=== PATIENT | female | born 1945 | race Caucasian/White ===

== ENCOUNTER 2017-10-13 19:53 | Observation (INO) | payer MEDICARE, BC ==
[2017-10-13 20:19] LABS: CHLORIDE,CL 107 mEq/L (98-106); SODIUM,NA 142 mEq/L (136-145)
[2017-10-13] MEDS ORDERED: Morphine 2 MG/ML Syringe ONE (20:20)
[2017-10-13] MEDS ORDERED: Morphine 4 MG/ML Syringe IVPUSH ONE (20:23)
[2017-10-13] MEDS ORDERED: Ondansetron 4 MG/2 ML SDV IVPUSH PRN (20:24)
[2017-10-13] MEDS ORDERED: Sodium Chloride 0.9% 1,000 ML IV ONE (20:35)
--- NOTE | 2017-10-13 20:44 | EDM.PDOC ---
ED HPI GENERAL MEDICAL PROBLEM - General Chief Complaint: Chest Pain Stated Complaint: chest pain Time Seen by Provider: 10/13/17 20:30 Source of Information: Reports: Patient History Limitations: Reports: No Limitations - History of Present Illness INITIAL COMMENTS - FREE TEXT/NARRATIVE: This patient is a 72 year old female that presents to the ER. Patient arrives via private vehicle, her drove her here. Patient reports that she started having left sided chest pain with shortness of breath, and nausea. Patient reports she was walking up steps when this occurred. The patient reports that she took 3 nitro. She reports her pain was at a 8/10, now after Nitro is 3/10. Patient does look uncomfortable. Patient reports that she has history in 2014 of having 2 stents placed due to blockages. She reports this was done in [facility]. She denies history of [place], smoking. She reports has HTN and Hyperlipidemia. She reports the pain does not move from its location of the left chest. She reports the pain is sharp in nature. The patient appears anxious. The patient reports she was in [place] in May this year and had chest pain there, had observation stay overnight with negative troponins and a negative stress test the next day and discharged home. Patient is alert and oriented. Onset: Today Onset Date: 10/13/17 Onset Time: 19:28 Location: Reports: Chest Severity: Moderate Improves with: Reports: Medication (Nitro) Worsens with: Reports: None Associated Symptoms: Reports: Nausea/Vomiting, Shortness of Breath. Denies: Confusion, Chest Pain, Cough, cough w sputum, Diaphoresis, Fever/Chills, Headaches, Loss of Appetite, Malaise, Rash, Seizure, Syncope, Weakness Left Chest Pain Score (Numeric/FACES): 3 - Related Data Allergies Allergy/AdvReac Type Severity Reaction Status Date / Time alendronate sodium Allergy Indigestion Verified 10/13/17 23:44 [From Fosamax] ibandronate sodium Allergy Cannot Verified 10/13/17 23:44 [From Boniva] Remember tramadol Allergy Nausea and Verified 10/13/17 23:44 Vomiting Home Meds: Home Meds Acetaminophen [Tylenol Extra Strength] 1,000 mg PO Q4H PRN 02/27/14 [History] Calcium Carbonate/Vitamin D3 [Calcium 600 + Vit D Tablet] 1 each PO BID [History] Omeprazole 20 mg PO DAILY 02/27/14 [History] Temazepam [Restoril] 30 mg PO BEDTIME PRN 02/27/14 [History] Aspirin [Adult Low Dose Aspirin EC] 81 mg PO DAILY 02/15/15 [History] Carvedilol 3.125 mg PO BID 02/15/15 [History] Isosorbide Mononitrate [Imdur] 30 mg PO DAILY 02/15/15 [History] Nitroglycerin [Nitrostat] 0.4 mg PO Q5M PRN 02/15/15 [History] Rosuvastatin Calcium [Crestor] 10 mg PO Q48H 02/15/15 [History] Ticagrelor [Brilinta] 90 mg PO BID 02/15/15 [History] Multivitamin [Multi-Vitamin Daily] 1 tab PO DAILY 01/18/16 [History] Carboxymethylcellulose Sodium [Refresh Plus 0.5%] 1 drop EYEBOTH QID PRN [History] Cetirizine HCl 1 tab PO DAILY PRN 09/12/16 [History] Polyethylene Glycol 3350 [MiraLAX] 1 dose PO DAILY PRN 09/12/16 [History] cycloSPORINE [Restasis] 1 drop EYEBOTH BID 09/12/16 [History] Benazepril [Lotensin] 2.5 mg PO DAILY 10/13/17 [History] Dimenhydrinate [Dramamine] 25 mg PO BID PRN 10/13/17 [History] Meclizine [Antivert] 25 mg PO BID PRN 10/13/17 [History] Past Medical History HEENT History: Reports: Allergic Rhinitis, Cataract Cardiovascular History: Reports: Angina, Arrhythmia, CAD, High Cholesterol, Hypertension, PTCA, Stents Other Cardiovascular History: January 2015 had PTCA Stent while in [place]. Attended 11 cardiac rehab sessions there, our insurance department says 12 sessions attended; said she had cp again, saw cardiology through [place], sent for stress test, then angiogram [facility]. 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 HX OF BRADYCARDIA. HX OF FATIGUE Gastrointestinal History: Reports: GERD, Hemorrhoids, Irritable Bowel Syndrome, Other (See Below) Other Gastrointestinal History: indigestion. RECTAL FISSURE Genitourinary History: Reports: None Other OB/BYN History: Right breast mastectomy due to cancer Musculoskeletal History: Reports: Osteoarthritis, Other (See Below) Other Musculoskeletal History: bilat knee replacement. LEFT ANKLE SPRAIN. ONYCHOMYCOSIS OF TOENAIL Neurological History: Reports: Neuropathy, Peripheral, Other (See Below) Other Neuro History: says she has had peripheral neuropathy. INSOMNIA Psychiatric History: Reports: Anxiety Endocrine/Metabolic History: Reports: Osteopenia Hematologic History: Reports: Blood Transfusion(s) Immunologic History: Reports: None Oncologic (Cancer) History: Reports: Breast Other Oncologic History: CA in 2009 Dermatologic History: Reports: Other (See Below) Other Dermatologic History: SEBORRHEIC KERATOSIS - Infectious Disease History Infectious Disease History: Reports: Measles - Past Surgical History Head Surgeries/Procedures: Reports: None HEENT Surgical History: Reports: Cataract Surgery Other HEENT Surgeries/Procedures: tympoplasty Cardiovascular Surgical History: Reports: Coronary Artery Stent, Other (See Below) Other Cardiovascular Surgeries/Procedures: said she had an episode of dizziness for which Erika Rick decreased her Coreg, and she was improved; says she had some SOB since her PTCA, but said possibly due to Brilenta. HX OF ABNORMAL NUCLEAR STRESS TEST. HX OF CARDIAC STENT PLACEMENT GI Surgical History: Reports: Cholecystectomy, Colonoscopy Musculoskeletal Surgical History: Reports: Knee Replacement, Other (See Below) Other Musculoskeletal Surgeries/Procedures:: says she has had bilat knee replacement;says she has had some intolerance to cholesterol meds last year, but has been taking the Crestor without problems;. BILAT KNEE REPLACEMENT Oncologic Surgical History: Reports: Mastectomy, Other (See Below) Other Oncologic Surgeries/Procedures: RIGHT SIDED MASTECTOMY Social & Family History - Family History Cardiac: Reports: CAD, Hypertension Neurological: Reports: CVA Endocrine/Metabolic: Reports: Diabetes, type II - Caffeine Use Caffeine Use: Reports: Coffee ED ROS GENERAL - Review of Systems Review Of Systems: See Below Constitutional: Reports: No Symptoms HEENT: Reports: No Symptoms Respiratory: Reports: Shortness of Breath. Denies: Wheezing, Pleuritic Chest Pain, Cough, Sputum, Hemoptysis Cardiovascular: Reports: Chest Pain. Denies: Edema, Lightheadedness, Palpitations, Syncope Endocrine: Reports: No Symptoms GI/Abdominal: Reports: Nausea. Denies: Abdominal Pain, Vomiting : Reports: No Symptoms Musculoskeletal: Reports: No Symptoms Skin: Reports: No Symptoms Neurological: Reports: No Symptoms Psychiatric: Reports: No Symptoms Hematologic/Lymphatic: Reports: No Symptoms Immunologic: Reports: No Symptoms ED EXAM, GENERAL - Physical Exam Exam: See Below Exam Limited By: No Limitations General Appearance: Alert, WD/WN, No Apparent Distress, Anxious Eye Exam: Bilateral Eye: Normal Inspection, PERRL Ears: Normal External Exam, Normal Canal, Hearing Grossly Normal, Normal TMs Ear Exam: Bilateral Ear: Auricle Normal, Canal Normal, TM normal Nose: Normal Inspection, Normal Mucosa, No Blood Throat/Mouth: Normal Inspection, Normal Lips, Normal Teeth, Normal Gums, Normal Oropharynx, Normal Voice, No Airway Compromise Head: Atraumatic, Normocephalic Neck: Normal Inspection, Supple, Non-Tender, Full Range of Motion Respiratory/Chest: No Respiratory Distress, Lungs Clear, Normal Breath Sounds, No Accessory Muscle Use, Chest Non-Tender Cardiovascular: Normal Peripheral Pulses, Regular Rate, Rhythm, No Edema, No Gallop, No JVD, No Murmur, No Rub Peripheral Pulses: 2+: Posterior Tibial (L), Posterior Tibial (R) GI/Abdominal: Soft, Non-Tender, No Organomegaly, No Distention Back Exam: Normal Inspection, Full Range of Motion Extremities: Normal Inspection, Normal Range of Motion, Non-Tender, No Pedal Edema, Normal Capillary Refill Neurological: Alert, Oriented Psychiatric: Anxious Skin Exam: Warm, Dry, Intact, Normal Color, No Rash Lymphatic: No Adenopathy EKG INTERPRETATION EKG Date: 10/13/17 Time: 20:01 Rhythm: NSR Rate (Beats/Min): 74 [place]: Normal P-Wave: Present QRS: Normal ST-T: Normal QT: Normal Course - Vital Signs Last Recorded V/S: Last Vital Signs Temp 97.4 F 10/14/17 07:40 Pulse 64 10/14/17 07:40 Resp 20 10/14/17 07:40 BP 135/91 H 10/14/17 07:40 Pulse Ox 98 10/14/17 07:40 - Orders/Labs/Meds Orders: Active Orders 24 hr Category Date Time Status Patient Status [ADT] Routine ADT 10/13/17 23:42 Active Ambulate [RC] .PRN Care 10/13/17 23:42 Active Cardiac Monitoring [RC] 08,1999 Care 10/13/17 23:42 Active Notify Provider Vital Signs [RC] .PRN Care 10/13/17 23:42 Active Oxygen Therapy [RC] .PRN Care 10/13/17 23:42 Active Up With Assistance [RC] .PRN Care 10/13/17 23:42 Active Vital Signs [RC] 0000,0400,0800,1200,1600,2000 Care 10/13/17 23:42 Active Resuscitation Status Routine Resus Stat 10/13/17 23:14 Ordered Labs: Laboratory Tests 10/13/17 10/13/17 10/13/17 Range/Units 20:00 20:01 20:01 WBC 7.6 (5.0-10.0) 10^3/uL RBC 4.01 (4.00-5.50) 10^6/uL Hgb 12.6 (12.0-16.0) g/dL Hct 38.4 (37.0-47.0) % MCV 95.8 H (82.0-94.0) fL MCH 31.4 (27.0-32.0) pg MCHC 32.8 L (33.0-38.0) g/dL RDW Coeff of Wesley 13.8 (11.0-15.0) % Plt Count 285 (150-400) 10^3/uL Neut % (Auto) 58.9 (35-85) % Lymph % (Auto) 26.5 (10-55) % Moca % (Auto) 9.6 (0-16) % Eos % (Auto) 4.6 (0-5) % Baso % (Auto) 0.4 (0-3) % Neut # (Auto) 4.47 (1.80-7.00) 10^3/uL Lymph # (Auto) 2.01 (1.00-4.80) 10^3/uL Moca # (Auto) 0.73 (0.00-0.80) 10^3/uL Eos # (Auto) 0.35 (0.00-0.45) 10^3/uL Baso # (Auto) 0.03 10^3/uL PT (9.7-12.3) SEC INR (0.92-1.18) APTT (23.2-32.3) SEC D-Dimer, Quantitative 0.21 (0.00-0.50) Sodium 142 (136-145) mEq/L Potassium 3.6 (3.5-5.0) mEq/L Chloride 107 H (98-106) mEq/L Carbon Dioxide 26 (21-32) mmol/L BUN 26 H (7-18) mg/dL Creatinine 1.2 H (0.6-1.0) mg/dL Est Cr Clr Drug Dosing TNP Estimated GFR (MDRD) 44 L (>=60) mL/min Glucose 114 H (75-99) mg/dL Calcium 9.0 (8.4-10.1) mg/dL Lactate Dehydrogenase 207 H (100-190) U/L Creatine Kinase 165 (21-215) U/L Troponin I < 0.017 (0.00-0.06) ng/mL 10/13/17 10/13/17 Range/Units 20:01 22:05 WBC (5.0-10.0) 10^3/uL RBC (4.00-5.50) 10^6/uL Hgb (12.0-16.0) g/dL Hct (37.0-47.0) % MCV (82.0-94.0) fL MCH (27.0-32.0) pg MCHC (33.0-38.0) g/dL RDW Coeff of Wesley (11.0-15.0) % Plt Count (150-400) 10^3/uL Neut % (Auto) (35-85) % Lymph % (Auto) (10-55) % Moca % (Auto) (0-16) % Eos % (Auto) (0-5) % Baso % (Auto) (0-3) % Neut # (Auto) (1.80-7.00) 10^3/uL Lymph # (Auto) (1.00-4.80) 10^3/uL Moca # (Auto) (0.00-0.80) 10^3/uL Eos # (Auto) (0.00-0.45) 10^3/uL Baso # (Auto) 10^3/uL PT 9.5 L (9.7-12.3) SEC INR 0.91 L (0.92-1.18) APTT 25.6 (23.2-32.3) SEC D-Dimer, Quantitative (0.00-0.50) Sodium (136-145) mEq/L Potassium (3.5-5.0) mEq/L Chloride (98-106) mEq/L Carbon Dioxide (21-32) mmol/L BUN (7-18) mg/dL Creatinine (0.6-1.0) mg/dL Est Cr Clr Drug Dosing Estimated GFR (MDRD) (>=60) mL/min Glucose (75-99) mg/dL Calcium (8.4-10.1) mg/dL Lactate Dehydrogenase (100-190) U/L Creatine Kinase (21-215) U/L Troponin I < 0.017 (0.00-0.06) ng/mL Meds: Medications Discontinued Medications Generic Name Dose Route Start Last Admin Trade Name Freq PRN Reason Stop Dose Admin Acetaminophen 650 mg 10/13/17 23:42 Tylenol PO Q4H PRN Pain (Mild 1-3)/fever Aspirin 81 mg 10/14/17 08:00 10/14/17 10:57 Halfprin PO Not Given DAILY [facility] Carvedilol 3.125 mg 10/14/17 08:00 10/14/17 10:57 Coreg PO Not Given BID CARLOS Sodium Chloride 1,000 mls @ 1,000 mls/hr 10/13/17 20:35 10/13/17 21:01 Normal Saline IV 10/13/17 21:34 1,000 mls/hr .BOLUS ONE Administration Sodium Chloride 1,000 mls @ 125 mls/hr 10/13/17 23:42 10/14/17 00:16 Normal Saline IV 125 mls/hr ASDIRECTED CARLOS Administration Ibuprofen 600 mg 10/13/17 23:42 Motrin PO Q6H PRN Pain (mild 1-3) Isosorbide Mononitrate 30 mg 10/14/17 08:00 10/14/17 10:57 Imdur PO Not Given DAILY CARLOS Lisinopril 2.5 mg 10/14/17 08:00 10/14/17 10:58 Prinivil PO Not Given DAILY CARLOS Loratadine 10 mg 10/13/17 23:42 Claritin PO DAILY PRN PRN Morphine Sulfate 4 mg 10/13/17 20:23 10/13/17 20:26 Morphine IVPUSH 10/13/17 20:24 4 mg ONETIME ONE Administration Morphine Sulfate Confirm 10/13/17 20:20 10/13/17 20:45 Morphine Administered 10/13/17 20:21 Not Given Dose 4 mg .ROUTE .STK-MED ONE Morphine Sulfate 2 mg 10/13/17 23:42 Morphine IVPUSH Q2H PRN Pain (severe 7-10) Nitroglycerin 1 gm 10/13/17 23:42 10/14/17 00:20 Nitro-Bid 2% TOP 10/13/17 23:43 1 gm ONETIME ONE Administration Non-Formulary Medication 1 drop 10/14/17 08:00 Cyclosporine [Restasis] EYEBOTH BID CARLOS Non-Formulary Medication 25 mg 10/13/17 23:42 Dimenhydrinate [Dramamine] PO ASDIRECTED PRN Nausea Non-Formulary Medication 25 mg 10/13/17 23:42 Meclizine [Antivert] PO ASDIRECTED PRN Dizziness Non-Formulary Medication 1 drop 10/13/17 23:42 Moxifloxacin [Vigamox 0.5% Ophth Soln] EYELF ASDIRECTED CARLOS Non-Formulary Medication 1 dose 10/13/17 23:42 Polyethylene Glycol 3350 [Miralax] PO ASDIRECTED PRN Constipation Non-Formulary Medication 1 drop 10/13/17 23:42 Prednisolone Acetate [Prednisolone Acetate] EYELF ASDIRECTED CARLOS Non-Formulary Medication 90 mg 10/14/17 08:00 Ticagrelor [Brilinta] PO BID CARLOS Ondansetron HCl 4 mg 10/13/17 20:24 10/13/17 20:36 Zofran IVPUSH 4 mg Q6H PRN Administration Nausea Ondansetron HCl 4 mg 10/13/17 23:42 Zofran IV Q4H PRN Nausea/Vomiting Pantoprazole Sodium 40 mg 10/14/17 07:00 10/14/17 06:31 Protonix PO 40 mg 0700 CARLOS Administration Simvastatin 40 mg 10/14/17 20:00 Zocor PO BEDTIME CARLOS Temazepam 15 mg 10/13/17 23:42 10/14/17 00:22 Restoril PO 15 mg BEDTIME PRN Administration Insomnia - Radiology Interpretation Free Text/Narrative:: CXR: No infiltrate, no pulmonary edema, no cardiac enlargement. - Re-Assessments/Exams Free Text/Narrative Re-Assessment/Exam: 10/13/17 23:08 Patient has had 2 negative troponins, normal sinus ekg, negatigve d-dimer. I have called and spoke to shrimp pond laborer Dr. Merritt at [facility]. He reports that we can either transfer her there for a stress test or can observe her here for 6-8 hours and repeat another troponin. If the repeat troponin is negative, then we can transfer as needed. I have spoken to the patient about her two options. I have explained risks of staying in [place] with no shrimp pond laborer and no stress testing here. She is aware of the risks. She reports that she would like to stay here observation and followup with her shrimp pond laborer Sunday by calling and possible stress test outpatient. I will admit this patient here observation, repeat troponin, treat her pain. Departure - Departure Time of Disposition: 23:12 Disposition: Refer to Observation Condition: Fair Clinical Impression: Atypical chest pain - My Orders Last 24 Hours: My Active Orders 10/13/17 23:14 Resuscitation Status Routine 10/13/17 23:42 Patient Status [ADT] Routine Ambulate [RC] .PRN Cardiac Monitoring [RC] 799,1999 Notify Provider Vital Signs [RC] .PRN Oxygen Therapy [RC] .PRN Up With Assistance [RC] .PRN Vital Signs [RC] 0000,0400,0800,1200,1600,2000 - Assessment/Plan Last 24 Hours: My Active Orders 10/13/17 23:14 Resuscitation Status Routine 10/13/17 23:42 Patient Status [ADT] Routine Ambulate [RC] .PRN Cardiac Monitoring [RC] 799,1999 Notify Provider Vital Signs [RC] .PRN Oxygen Therapy [RC] .PRN Up With Assistance [RC] .PRN Vital Signs [RC] 0000,0400,0800,1200,1600,2000 Plan: PLEASE SEE RN NOTE FOR PFSH. PLEASE USE ER H&P ADMIT H&P.
[2017-10-13] MEDS ORDERED: Sodium Chloride 0.9% 1,000 ML IV SCH (23:42)
[2017-10-13] MEDS ORDERED: DIMENHYDRINATE 25 MG PO PRN (23:42)
[2017-10-13] MEDS ORDERED: Non-Formulary Medication 1 Each (Moxifloxacin [Vigamox 0.5% Ophth Soln] 1 DROP) EYELF SCH (23:42)
[2017-10-13] MEDS ORDERED: Nitroglycerin 2% Oint 1 GM UD Packet TOP ONE (23:42)
[2017-10-13] MEDS ORDERED: Loratadine 10 MG Tab PO PRN (23:42)
[2017-10-13] MEDS ORDERED: PREDNISOLONE ACETATE EYELF SCH (23:42)
[2017-10-13] MEDS ORDERED: Morphine 2 MG/ML Syringe IVPUSH PRN (23:42)
[2017-10-13] MEDS ORDERED: Non-Formulary Medication 1 Each (Meclizine [Antivert] 25 MG) PO PRN (23:42)
[2017-10-13] MEDS ORDERED: Acetaminophen 325 MG Tab PO PRN (23:42)
[2017-10-13] MEDS ORDERED: Temazepam 15 MG Cap PO PRN (23:42)
[2017-10-13] MEDS ORDERED: Ibuprofen 200 MG Tab PO PRN (23:42)
[2017-10-13] MEDS ORDERED: Ondansetron 4 MG/2 ML SDV IV PRN (23:42)
[2017-10-13] MEDS ORDERED: POLYETHYLENE GLYCOL PO PRN (23:42)
[2017-10-14] MEDS ORDERED: Pantoprazole 40 MG Tab.CR PO SCH (07:00)
[2017-10-14 07:25] LABS: CHLORIDE,CL 111 mEq/L (98-106); SODIUM,NA 145 mEq/L (136-145)
[2017-10-14 07:40] VITALS: BP 135/91
[2017-10-14] MEDS ORDERED: Lisinopril 5 MG Tab PO SCH (08:00)
[2017-10-14] MEDS ORDERED: Non-Formulary Medication 1 Each (Cyclosporine [Restasis] 1 DROP) EYEBOTH SCH (08:00)
[2017-10-14] MEDS ORDERED: Non-Formulary Medication 1 Each (Ticagrelor [Brilinta] 90 MG) PO SCH (08:00)
[2017-10-14] MEDS ORDERED: Isosorbide Mononitrate 30 MG Tab.ER PO SCH (08:00)
[2017-10-14] MEDS ORDERED: Aspirin 81 MG Tab.EC PO SCH (08:00)
[2017-10-14] MEDS ORDERED: Carvedilol 3.125 MG Tab PO SCH (08:00)
--- NOTE | 2017-10-14 10:21 | PCM.DCSUM1 ---
Discharge Summary - Hospital Course HPI Initial Comments: This patient was admitted last night observation for chest pain rule out. Patient has had multiple negative troponins. Patient was given fluids for elevated CR. The patient today reports that she has 0 pain and is ready to go home. i educated her when to return to the ER and that she needs to followup with her school speech therapist this week for visit and possible stress test. Will discharge. Stable. - Discharge Data Discharge Date: 10/14/17 Discharge Disposition: Home, Self-Care 01 Condition: Good - Patient Instructions Diet: Heart Healthy Diet Activity: As Tolerated, No Strenuous Activities Driving: May Drive Today Showering/Bathing: May Shower Notify Provider of: Fever, Increased Pain, Swelling and Redness, Nausea and/or Vomiting - Discharge Plan Home Medications: Home Meds Acetaminophen [Tylenol Extra Strength] 1,000 mg PO Q4H PRN 02/27/14 [History] Calcium Carbonate/Vitamin D3 [Calcium 600 + Vit D Tablet] 1 each PO BID [History] Omeprazole 20 mg PO DAILY 02/27/14 [History] Temazepam [Restoril] 30 mg PO BEDTIME PRN 02/27/14 [History] Aspirin [Adult Low Dose Aspirin EC] 81 mg PO DAILY 02/15/15 [History] Carvedilol 3.125 mg PO BID 02/15/15 [History] Isosorbide Mononitrate [Imdur] 30 mg PO DAILY 02/15/15 [History] Nitroglycerin [Nitrostat] 0.4 mg PO Q5M PRN 02/15/15 [History] Rosuvastatin Calcium [Crestor] 10 mg PO Q48H 02/15/15 [History] Ticagrelor [Brilinta] 90 mg PO BID 02/15/15 [History] Multivitamin [Multi-Vitamin Daily] 1 tab PO DAILY 01/18/16 [History] Carboxymethylcellulose Sodium [Refresh Plus 0.5%] 1 drop EYEBOTH QID PRN [History] Cetirizine HCl 1 tab PO DAILY PRN 09/12/16 [History] Polyethylene Glycol 3350 [MiraLAX] 1 dose PO DAILY PRN 09/12/16 [History] cycloSPORINE [Restasis] 1 drop EYEBOTH BID 09/12/16 [History] Benazepril [Lotensin] 2.5 mg PO DAILY 10/13/17 [History] Dimenhydrinate [Dramamine] 25 mg PO BID PRN 10/13/17 [History] Meclizine [Antivert] 25 mg PO BID PRN 10/13/17 [History] Patient Handouts: Nonspecific Chest Pain Forms: ED Department Discharge Referrals: Arianna Rick PA [Primary Care Provider] - - Discharge Summary/Plan Comment DC Time >30 min.: No Discharge Summary/Plan Comment: Followup with school speech therapist this week Followup with your primary care provider this week Return to the ER for worsening of condition or any emergent concerns - General Info Functional Status: Reports: Pain Controlled, Tolerating Diet, Ambulating - Review of Systems General: Reports: No Symptoms HEENT: Reports: No Symptoms Pulmonary: Reports: No Symptoms Cardiovascular: Reports: No Symptoms. Denies: Chest Pain, Palpitations, Dyspnea on Exertion, Orthopnea, PND, Edema, Lightheadedness Gastrointestinal: Reports: No Symptoms Genitourinary: Reports: No Symptoms Musculoskeletal: Reports: No Symptoms Skin: Reports: No Symptoms Neurological: Reports: No Symptoms Psychiatric: Reports: No Symptoms - Patient Data Vitals - Most Recent: Last Vital Signs Temp 97.4 F 10/14/17 07:40 Pulse 64 10/14/17 07:40 Resp 20 10/14/17 07:40 BP 135/91 H 10/14/17 07:40 Pulse Ox 98 10/14/17 07:40 Weight - Most Recent: 139 lb 11.2 oz Lab Results - Last 24 hrs: Laboratory Results - last 24 hr 10/13/17 10/13/17 10/13/17 Range/Units 20:00 20:01 20:01 WBC 7.6 (5.0-10.0) 10^3/uL RBC 4.01 (4.00-5.50) 10^6/uL Hgb 12.6 (12.0-16.0) g/dL Hct 38.4 (37.0-47.0) % MCV 95.8 H (82.0-94.0) fL MCH 31.4 (27.0-32.0) pg MCHC 32.8 L (33.0-38.0) g/dL RDW Coeff of Wesley 13.8 (11.0-15.0) % Plt Count 285 (150-400) 10^3/uL Neut % (Auto) 58.9 (35-85) % Lymph % (Auto) 26.5 (10-55) % [place] % (Auto) 9.6 (0-16) % Eos % (Auto) 4.6 (0-5) % Baso % (Auto) 0.4 (0-3) % Neut # (Auto) 4.47 (1.80-7.00) 10^3/uL Lymph # (Auto) 2.01 (1.00-4.80) 10^3/uL [place] # (Auto) 0.73 (0.00-0.80) 10^3/uL Eos # (Auto) 0.35 (0.00-0.45) 10^3/uL Baso # (Auto) 0.03 10^3/uL PT (9.7-12.3) SEC INR (0.92-1.18) APTT (23.2-32.3) SEC D-Dimer, Quantitative 0.21 (0.00-0.50) Sodium 142 (136-145) mEq/L Potassium 3.6 (3.5-5.0) mEq/L Chloride 107 H (98-106) mEq/L Carbon Dioxide 26 (21-32) mmol/L BUN 26 H (7-18) mg/dL Creatinine 1.2 H (0.6-1.0) mg/dL Est Cr Clr Drug Dosing TNP Estimated GFR (MDRD) 44 L (>=60) mL/min Glucose 114 H (75-99) mg/dL Calcium 9.0 (8.4-10.1) mg/dL Magnesium (1.8-2.4) mg/dL Lactate Dehydrogenase 207 H (100-190) U/L Creatine Kinase 165 (21-215) U/L Troponin I < 0.017 (0.00-0.06) ng/mL 10/13/17 10/13/17 10/13/17 Range/Units 20:01 22:05 23:55 WBC (5.0-10.0) 10^3/uL RBC (4.00-5.50) 10^6/uL Hgb (12.0-16.0) g/dL Hct (37.0-47.0) % MCV (82.0-94.0) fL MCH (27.0-32.0) pg MCHC (33.0-38.0) g/dL RDW Coeff of [place] (11.0-15.0) % Plt Count (150-400) 10^3/uL Neut % (Auto) (35-85) % Lymph % (Auto) (10-55) % [place] % (Auto) (0-16) % Eos % (Auto) (0-5) % Baso % (Auto) (0-3) % Neut # (Auto) (1.80-7.00) 10^3/uL Lymph # (Auto) (1.00-4.80) 10^3/uL [place] # (Auto) (0.00-0.80) 10^3/uL Eos # (Auto) (0.00-0.45) 10^3/uL Baso # (Auto) 10^3/uL PT 9.5 L (9.7-12.3) SEC INR 0.91 L (0.92-1.18) APTT 25.6 (23.2-32.3) SEC D-Dimer, Quantitative (0.00-0.50) Sodium (136-145) mEq/L Potassium (3.5-5.0) mEq/L Chloride (98-106) mEq/L Carbon Dioxide (21-32) mmol/L BUN (7-18) mg/dL Creatinine (0.6-1.0) mg/dL Est Cr Clr Drug Dosing Estimated GFR (MDRD) (>=60) mL/min Glucose (75-99) mg/dL Calcium (8.4-10.1) mg/dL Magnesium (1.8-2.4) mg/dL Lactate Dehydrogenase (100-190) U/L Creatine Kinase (21-215) U/L Troponin I < 0.017 < 0.017 (0.00-0.06) ng/mL 10/14/17 10/14/17 Range/Units 06:50 06:50 WBC 6.3 (5.0-10.0) 10^3/uL RBC 3.75 L (4.00-5.50) 10^6/uL Hgb 11.9 L (12.0-16.0) g/dL Hct 36.9 L (37.0-47.0) % MCV 98.4 H (82.0-94.0) fL MCH 31.7 (27.0-32.0) pg MCHC 32.2 L (33.0-38.0) g/dL RDW Coeff of [place] 14.0 (11.0-15.0) % Plt Count 252 (150-400) 10^3/uL Neut % (Auto) 60.7 (35-85) % Lymph % (Auto) 23.2 (10-55) % [place] % (Auto) 9.5 (0-16) % Eos % (Auto) 6.3 H (0-5) % Baso % (Auto) 0.3 (0-3) % Neut # (Auto) 3.84 (1.80-7.00) 10^3/uL Lymph # (Auto) 1.47 (1.00-4.80) 10^3/uL [place] # (Auto) 0.60 (0.00-0.80) 10^3/uL Eos # (Auto) 0.40 (0.00-0.45) 10^3/uL Baso # (Auto) 0.02 10^3/uL PT (9.7-12.3) SEC INR (0.92-1.18) APTT (23.2-32.3) SEC D-Dimer, Quantitative (0.00-0.50) Sodium 145 (136-145) mEq/L Potassium 3.9 (3.5-5.0) mEq/L Chloride 111 H (98-106) mEq/L Carbon Dioxide 25 (21-32) mmol/L BUN 19 H (7-18) mg/dL Creatinine 0.9 (0.6-1.0) mg/dL Est Cr Clr Drug Dosing 47.43 Estimated GFR (MDRD) > 60 (>=60) mL/min Glucose 85 D (75-99) mg/dL Calcium 8.5 (8.4-10.1) mg/dL Magnesium 2.4 (1.8-2.4) mg/dL Lactate Dehydrogenase (100-190) U/L Creatine Kinase (21-215) U/L Troponin I < 0.017 (0.00-0.06) ng/mL Med Orders - Current: Current Medications Acetaminophen (Tylenol) 650 mg PO Q4H PRN PRN Reason: Pain (Mild 1-3)/fever Aspirin (Halfprin) 81 mg PO DAILY [facility] Carvedilol (Coreg) 3.125 mg PO BID [facility] Sodium Chloride (Normal Saline) 1,000 mls @ 125 mls/hr IV ASDIRECTED CARLOS Last Admin: 10/14/17 00:16 Dose: 125 mls/hr Ibuprofen (Motrin) 600 mg PO Q6H PRN PRN Reason: Pain (mild 1-3) Isosorbide Mononitrate (Imdur) 30 mg PO DAILY [facility] Lisinopril (Prinivil) 2.5 mg PO DAILY [facility] Loratadine (Claritin) 10 mg PO DAILY PRN PRN Reason: PRN Morphine Sulfate (Morphine) 2 mg IVPUSH Q2H PRN PRN Reason: Pain (severe 7-10) Non-Formulary Medication (Cyclosporine [Restasis]) 1 drop EYEBOTH BID [facility] Non-Formulary Medication (Dimenhydrinate [Dramamine]) 25 mg PO ASDIRECTED PRN PRN Reason: Nausea Non-Formulary Medication (Meclizine [Antivert]) 25 mg PO ASDIRECTED PRN PRN Reason: Dizziness Non-Formulary Medication (Moxifloxacin [Vigamox 0.5% [facility] Sol]) 1 drop EYELF ASDIRECTED [facility] Non-Formulary Medication (Polyethylene Glycol 3350 [Miralax]) 1 dose PO ASDIRECTED PRN PRN Reason: Constipation Non-Formulary Medication (Prednisolone Acetate [Prednisolone Acetate]) 1 drop EYELF ASDIRECTED [facility] Non-Formulary Medication (Ticagrelor [Brilinta]) 90 mg PO BID [facility] Ondansetron HCl (Zofran) 4 mg IVPUSH Q6H PRN PRN Reason: Nausea Last Admin: 10/13/17 20:36 Dose: 4 mg Ondansetron HCl (Zofran) 4 mg IV Q4H PRN PRN Reason: Nausea/Vomiting Pantoprazole Sodium (Protonix) 40 mg PO 0700 CARLOS Last Admin: 10/14/17 06:31 Dose: 40 mg Simvastatin (Zocor) 40 mg PO BEDTIME [facility] Temazepam (Restoril) 15 mg PO BEDTIME PRN PRN Reason: Insomnia Last Admin: 10/14/17 00:22 Dose: 15 mg Discontinued Medications Sodium Chloride (Normal Saline) 1,000 mls @ 1,000 mls/hr IV .BOLUS ONE Stop: 10/13/17 21:34 Last Admin: 10/13/17 21:01 Dose: 1,000 mls/hr Morphine Sulfate (Morphine) 4 mg IVPUSH ONETIME ONE Stop: 10/13/17 20:24 Last Admin: 10/13/17 20:26 Dose: 4 mg Morphine Sulfate (Morphine) Confirm Administered Dose 4 mg .ROUTE .STK-MED ONE Stop: 10/13/17 20:21 Last Admin: 10/13/17 20:45 Dose: Not Given Nitroglycerin (Nitro-Bid 2%) 1 gm TOP ONETIME ONE Stop: 10/13/17 23:43 Last Admin: 10/14/17 00:20 Dose: 1 gm - Exam General: Reports: Alert, Oriented, Cooperative, No Acute Distress Lungs: Reports: Clear to Auscultation, Normal Respiratory Effort Cardiovascular: Reports: Regular Rate, Regular Rhythm, No Murmurs Back Exam: Reports: Normal Inspection Extremities: Normal Inspection, Normal Range of Motion, Non-Tender, No Pedal Edema, Normal Capillary Refill Skin: Reports: Warm, Dry, Intact Neurological: Reports: No New Focal Deficit Psy/Mental Status: Reports: Alert, Normal Affect, Normal Mood
[2017-10-14] MEDS ORDERED: Simvastatin 40 MG Tab PO SCH (20:00)
== END 2017-10-14 11:48 | disposition home or self-care (01) ==
LOC: CC.ED 19:53 → CC.MS 23:14 → UNDOADMOB 23:38 → UNDODISOB 10-14 11:48
PROVIDERS: ADMIT Nurse Practitioner; ATTEND Family Medicine
DX: R07.89 Other chest pain (principal); I10 Essential (primary) hypertension; I25.10 Atherosclerotic heart disease of native coronary artery without angina pectoris; E78.00 Pure hypercholesterolemia, unspecified; K21.9 Gastro-esophageal reflux disease without esophagitis; Z79.82 Long term (current) use of aspirin; Z79.899 Other long term (current) drug therapy; Z95.5 Presence of coronary angioplasty implant and graft; Z88.6 Allergy status to analgesic agent; Z88.8 Allergy status to other drugs, medicaments and biological substances
CPT/HCPCS: 36415; 71046; 80048; 82550; 83615; 83735; 84484; 85025; 85379; 85610; 85730; 93005; 93010; 96361; 96374; 96375; 99217; 99220; 99285; A9270-GY; G0378; J2270; J2405; J7030

== ENCOUNTER → 2019-02-28 | Day surgery (SDC) | payer MEDICARE, BC ==
[~2019-02-28] MED LIST: Lactated Ringers 1,000 ML IV SCH; Propofol 200 MG/20 ML SDV IV ONE
[2019-02-28 09:54] VITALS: BP 120/54; PULSE 61
--- NOTE | 2019-02-28 15:37 | OR ---
DATE OF OPERATION: 02/28/2019 PREOPERATIVE DIAGNOSIS: SCREENING COLONOSCOPY. POSTOPERATIVE DIAGNOSIS: SCREENING COLONOSCOPY. SURGEON: Roverto Kaur MD PROCEDURE: FULL-LENGTH COLONOSCOPY. ANESTHESIA: MAC via PHYSICALLY IMPAIRED TEACHER. COMPLICATIONS: None. SPECIMEN: None. FINDINGS: Normal full-length colonoscopy. RECOMMENDATIONS: Followup colonoscopy per ACS guidelines every 10 years if no family history of colon cancer. INDICATIONS: The patient was sent for screening colonoscopy by her primary provider. DESCRIPTION OF PROCEDURE: The patient was prepped and draped, placed in the left lateral decubitus position. A lubricated Olympus colonoscope was inserted and with relative ease advanced to the cecum. We were able to directly visualize the ileocecal valve and appendiceal orifice. The bowel prep was fine. Upon withdrawal of the scope, throughout the entire length of the colon, there were no polyps, masses, ulcerations, or bleeding sites. No vascular abnormalities or signs of colitis. No signs of any diverticula. The rectal vault was benign. Retroflexion of the scope in the rectum showed no perianal lesions. Air was suctioned, scope removed without complication. ANDREE/RODRÍGUEZ /[id number]
== END ==
LOC: CC.SDS 07:13
PROVIDERS: ATTEND Family Medicine
DX: Z12.11 Encounter for screening for malignant neoplasm of colon (principal); K21.9 Gastro-esophageal reflux disease without esophagitis; I25.10 Atherosclerotic heart disease of native coronary artery without angina pectoris; E78.5 Hyperlipidemia, unspecified; I10 Essential (primary) hypertension; M19.90 Unspecified osteoarthritis, unspecified site; Z88.8 Allergy status to other drugs, medicaments and biological substances; Z88.1 Allergy status to other antibiotic agents; Z79.891 Long term (current) use of opiate analgesic; Z79.899 Other long term (current) drug therapy; Z79.82 Long term (current) use of aspirin; Z87.891 Personal history of nicotine dependence
CPT/HCPCS: G0121; J2704; J7120